=== PATIENT | female | born 1995 | race Native Hawaiian/Other Pacific Islander ===

== ENCOUNTER 2018-06-07 02:05 | Inpatient (IN) | payer OTHER ==
[~2018-06-07] VITALS: Ht 162.6 cm; Wt 78.2 kg
[2018-06-07] VITALS (7 sets, daily range): BP systolic 109–127; BP diastolic 49–69; TEMP 97.9–98.8; Ht 162.6 cm; Wt 78.2 kg
[2018-06-07 03:00] LABS: PLATELET COUNT 334 K/uL (152-353)
[2018-06-07 03:11] LABS: POTASSIUM 3.8 mmol/L (3.6-5.2)
[2018-06-08 04:00] VITALS: BP 114/44; TEMP 98.5
[2018-06-08 06:56] LABS: PLATELET COUNT 262 K/uL (152-353)
[2018-06-08 07:05] LABS: POTASSIUM 3.7 mmol/L (3.6-5.2)
[2018-06-08 08:00] VITALS: BP 113/66; TEMP 98.7
[2018-06-08 12:00] VITALS: BP 106/60; TEMP 98.4
[2018-06-08 16:00] VITALS: BP 122/57; TEMP 98.6
[2018-06-08 20:03] VITALS: BP 115/60; TEMP 99
[2018-06-08 20:09] LABS: PARTIAL THROMBOPLASTIN TIME 28.5 SECONDS (24.5-33.6)
[2018-06-09] VITALS (7 sets, daily range): BP systolic 104–126; BP diastolic 43–68; TEMP 98.3–98.8
[2018-06-09 05:24] LABS: PLATELET COUNT 218 K/uL (152-353)
[2018-06-09 05:52] LABS: POTASSIUM 3.6 mmol/L (3.6-5.2)
[2018-06-10 04:00] VITALS: BP 117/53; TEMP 98.4
[2018-06-10 05:46] LABS: PLATELET COUNT 264 K/uL (152-353)
[2018-06-10 06:20] LABS: POTASSIUM 3.6 mmol/L (3.6-5.2)
[2018-06-10 07:45] VITALS: BP 112/54; TEMP 98.4
[2018-06-10 12:05] VITALS: BP 123/79; TEMP 98.7
[2018-06-10 16:03] VITALS: BP 136/87; TEMP 98.6
[2018-06-10 20:00] VITALS: BP 134/74; TEMP 98.5
[2018-06-11] VITALS (13 sets, daily range): BP systolic 101–135; BP diastolic 42–83; TEMP 97.9–98.6
[2018-06-11 05:45] LABS: PLATELET COUNT 260 K/uL (152-353)
[2018-06-11 05:56] LABS: POTASSIUM 3.6 mmol/L (3.6-5.2)
[2018-06-12] VITALS: BP 132/73; TEMP 98.3
[2018-06-12 04:00] VITALS: BP 125/77; TEMP 98.4
[2018-06-12 06:29] LABS: PLATELET COUNT 293 K/uL (152-353)
[2018-06-12 06:39] LABS: POTASSIUM 3.5 mmol/L (3.6-5.2)
[2018-06-12 08:24] VITALS: BP 152/83; TEMP 97.8
[2018-06-12 12:16] VITALS: BP 119/69; TEMP 98.4
[2018-06-12 16:21] VITALS: BP 118/63; TEMP 98.4
== END 2018-06-12 16:15 | disposition home or self-care (01) | DRG 417 ==
LOC: ED 02:05 → MED/SURG 06:25
PROVIDERS: ADMIT Family Medicine
PROC: 0FT44ZZ Resection of Gallbladder, Percutaneous Endoscopic Approach (ICD-10-PCS; principal; 2018-06-11)
PROC: BF13YZZ Fluoroscopy of Gallbladder and Bile Ducts using Other Contrast (ICD-10-PCS; 2018-06-11)
DX: K80.12 Calculus of gallbladder with acute and chronic cholecystitis without obstruction (principal); K85.10 Biliary acute pancreatitis without necrosis or infection; K59.09 Other constipation
CPT/HCPCS: 36415; 80053; 80307; 81000; 81025; 82150; 83690; 85027; 85610; 85730; 87340; 96365; 96374; 96375; 99284; C1887; J0330; J0690; J1170; J1644; J1885; J2001; J2175; J2250; J2405; J2704; J2710; J3010; J3490; Q9963

== ENCOUNTER 2019-11-15 12:22 | Outpatient (CLI) | payer BC, OTHER | END 2019-11-15 19:12 | disposition home or self-care (01) | LOC: RAD 12:22 | DX: M54.5 Low back pain (principal) ==

== ENCOUNTER 2021-09-27 08:20 | Emergency (ER) | payer BC, OTHER ==
[~2021-09-27] VITALS: Ht 162.6 cm; Wt 70.8 kg
[2021-09-27 08:27] VITALS: BP 141/69; TEMP 98.7
== END 2021-09-27 09:22 | disposition home or self-care (01) ==
LOC: ED 08:20
PROC: 2W3DX1Z Immobilization of Left Lower Arm using Splint (ICD-10-PCS; principal; 2021-09-27)
DX: G62.89 Other specified polyneuropathies (principal)
CPT/HCPCS: 96372; 99283; J2930

== ENCOUNTER 2021-11-06 16:09 | Emergency (ER) | payer BC, OTHER ==
[~2021-11-06] VITALS: Ht 162.6 cm; Wt 70.8 kg
[2021-11-06 16:49] LABS: PLATELET COUNT 146 K/uL (152-353)
[2021-11-06 16:57] LABS: POTASSIUM 3.6 mmol/L (3.6-5.2)
[2021-11-06 18:30] VITALS: TEMP 99
[2021-11-06 19:20] VITALS: BP 115/56
== END 2021-11-06 19:20 | disposition home or self-care (01) ==
LOC: ED 16:09
PROVIDERS: Hospitalist
DX: N12 Tubulo-interstitial nephritis, not specified as acute or chronic (principal); R50.9 Fever, unspecified
CPT/HCPCS: 80053; 81000; 81025; 83605; 83690; 85027; 87040; 87077; 87186; 87205; 96365; 96375; 99284; J1170; J1885; J1956; J2405; Q9963